=== PATIENT | female | born 1935 | race Caucasian/White ===

== ENCOUNTER 2018-10-06 05:37 | Inpatient (IN) | payer BC, MEDICARE ==
[~2018-10-06] VITALS: Ht 167.6 cm; Wt 69.9 kg
--- NOTE | 2018-10-06 05:40 | NUR ---
Pt BIBRA complaining of generalized weakness that has been progressing since last Wednesday. Pt was unable to walk today, so pt called 911. Pt is AXO4. Respirations are even and unlabored. Pt put on the monitor and pulse ox. Pt tachycardic on the monitor. Pending eval from EMILIANO HUTCHINSON.
[2018-10-06 06:43] LABS: BASOPHILS # (AUTO) 0.1 /CMM (0.0-0.2); BASOPHILS % (AUTO) 0.3 % (0.0-2.0); EOSINOPHILS % (AUTO) 0.4 % (0.0-6.0); HEMATOCRIT 40 % (33-45); LYMPHOCYTES # (AUTO) 1.1 /CMM (0.8-4.8); LYMPHOCYTES % (AUTO) 4.5 % (20.0-44.0); MEAN CORPUSCULAR HGB CONC 33 g/dl (31.0-36.0); MEAN CORPUSCULAR VOLUME 95 fL (82-100); MONOCYTES # (AUTO) 2.2 /CMM (0.1-1.30); MONOCYTES % (AUTO) 8.6 % (2.0-12.0); NEUTROPHILS % (AUTO) 86.2 % (43.0-81.0); PLATELET COUNT (AUTO) 185 /CMM (150-450); RED BLOOD CELL COUNT(AUTO) 4.23 MIL/uL (4.0-5.2); WHITE BLOOD COUNT (AUTO) 25.5 K/uL (4.3-11.0)
--- NOTE | 2018-10-06 06:50 | NUR ---
XRAY AT BEDSIDE.
[2018-10-06 07:00] LABS: CALCIUM, SERUM 8.6 mg/dL (8.5-10.1); CARBON DIOXIDE 24 mmol/L (21-32); CHLORIDE 101 mmol/L (98-107); CREATININE 2.1 mg/dL (0.6-1.3); GLUCOSE 123 mg/dL (74-106); POTASSIUM 4.4 mmol/L (3.5-5.1); SODIUM SERUM 139 mmol/L (136-145); UREA NITROGEN, BLOOD 55 mg/dL (7-18)
[2018-10-06 07:02] LABS: ALANINE AMINOTRANSFERASE 99 U/L (12-78); ALBUMIN 2.6 g/dL (3.4-5.0); ALKALINE PHOSPHATASE 111 U/L (46-116); ASPARTATE AMINOTRANSFERASE 113 U/L (15-37); BILIRUBIN,DIRECT 0.2 mg/dL (0.0-0.2); BILIRUBIN,TOTAL 0.6 mg/dL (0.2-1.0); TOTAL PROTEIN, SERUM 6.8 g/dL (6.4-8.2)
--- NOTE | 2018-10-06 07:22 | NUR ---
REPORT GIVEN TO JIA MENDOZA FOR MARYANA.
--- NOTE | 2018-10-06 07:25 | NUR ---
RECVD REPORT FROM [facility], PATIENT REMAINS STABLE IN NO DISTRESS, WILL CONTINUE TO MONITOR
[2018-10-06] MEDS ORDERED: IV NS 0.9% 1,000 ML BAG IV ONE (07:30)
[2018-10-06] MEDS ORDERED: LEVOFLOXACIN 750 MG /D5W 150ML 150 ML IV ONE (07:30)
[2018-10-06 07:31] LABS: APPEARANCE,URINE CLOUDY (CLEAR); BILIRUBIN,URINE 1+ (NEGATIVE); BLOOD, URINE 3+ Ery/uL (NEGATIVE); COLOR,URINE YELLOW (YELLOW); KETONES,URINE NEGATIVE (NEGATIVE); LEUKOCYTE ESTERASE ,URINE 3+ (NEGATIVE); NITRITE, URINE NEGATIVE (NEGATIVE); PROTEIN,URINE 2+ mg/dl (NEGATIVE); UGLUCOSE NEGATIVE (NEGATIVE); UROBILINOGEN,URINE 0.2 EU/dL (0.2)
[2018-10-06 07:46] LABS: RBC,URINE 51-80 /HPF (0-2)
[2018-10-06] MEDS ORDERED: LEVOFLOXACIN 750 MG /D5W 150ML 0 ML IV ONE (07:46)
[2018-10-06 07:47] LABS: BACTERIA,URINE Many /HPF (None Seen); SQUAMOUS EPITHELIAL CELL,UR Few /HPF (None Seen); WBC,URINE TOO NUMEROUS TO COUN /HPF (0-3)
[2018-10-06] MEDS ORDERED: METO25TA6 PO (08:52)
[2018-10-06] MEDS ORDERED: DENO60DI SQ (08:52)
[2018-10-06] MEDS ORDERED: NEO/3.5O15 EACHEYE (08:52)
[2018-10-06] MEDS ORDERED: LACT1CAP71 PO (08:52)
[2018-10-06] MEDS ORDERED: PANT40TA4 PO (08:52)
--- NOTE | 2018-10-06 09:13 | NUR ---
REPORT GIVEN TO CELFL TO CONTINUE MARYANA
[2018-10-06 09:40] VITALS: BP 120/80
[2018-10-06] MEDS ORDERED: ZOLPIDEM TARTRATE 5 MG TABLET PO PRN (10:30)
[2018-10-06] MEDS ORDERED: MAGNESIUM HYDROXIDE 30 ML UDC PO PRN (10:30)
[2018-10-06] MEDS ORDERED: ONDANSETRON HCL/PF 4 MG/2 ML VIAL IVP PRN (10:30)
[2018-10-06] MEDS ORDERED: Z GUARD REMEDY 2 OZ OINT TP PRN (10:30)
[2018-10-06] MEDS ORDERED: ACETAMINOPHEN 325 MG TABLET PO PRN (10:30)
[2018-10-06] MEDS ORDERED: MAG HYDROX/AL HYDROX/SIMETH 30 ML UDC PO PRN (10:30)
--- NOTE | 2018-10-06 10:30 | NUR ---
ms rn received a new admission from er w/ dx of generalized weakness, alert,oriented x4, not in any form of distress, respirations even and unlabored,no sob noted, lungs are diminish, abdomen soft,positive bowel sounds, denies pain at this time, noted to have a multiple abrasions all over body,will monitor patient's condition.
--- NOTE | 2018-10-06 12:00 | NUR ---
ms rn was seen by dr. cordoba, w/ orders made and carried out.
[2018-10-06 16:46] VITALS: BP 106/65
[2018-10-06] MEDS: NEO/POLY/DEXA OPHTH OINT 3.5 GM TUBE EACHEYE SCH (17:00)
[2018-10-06] MEDS: METOPROLOL TARTRATE 25 MG TABLET PO SCH (17:24)
[2018-10-06] MEDS: LACTOBACILLUS RHAMNOSUS GG 1 EACH CAP.SPRINK PO SCH (17:24)
--- NOTE | 2018-10-06 18:52 | NUR ---
ms rn on bed, no distress noted.
[2018-10-06 20:00] VITALS: BP 113/62
--- NOTE | 2018-10-06 20:00 | NUR ---
TELE/RN OPENING NOTES RECEIVED PATIENT IN BED, RESPIRATIONS EVEN AND UNLABORED BUT WEAK, REQUIRE ASSISTANCE IN TURNING AND ADS, ABLE TO CALL FOR ASSISTANCE WITH CALL LIGHT, BED LOCKED, FLUIDS WITHIN REACH, PROVIDED NEEDS, HAD BM AND USE BED MAK, WITH MULTIPLE SKIN ISSUES.WILL CONTINUE TO MONITOR. RECEIVED ENDORESEMENT FROM AM RN FOR MARYANA.
[2018-10-06] MEDS: IV 1/2NS 1000 ML 1,000 ML IV PRN (21:56)
--- NOTE | 2018-10-06 23:45 | NUR ---
TELE/RN NOTES: REPORT RECEIVED GRAM NEGATIVE RODS PRELIMINARY TO INFORM MD FOR ORDER.
[2018-10-07 00:40] VITALS: BP 105/60
[2018-10-07 04:34] VITALS: BP 116/70
--- NOTE | 2018-10-07 06:37 | NUR ---
08-2TELE/RN NOTES PATIENT ABLE TO SLEEP AND REST DURING THE NIGHT, SKIN WARM TO TOUCH. RESPIRATIONS EVEN AND UNLABIORED. WILL MONITR. BED LOCKED.
[2018-10-07 06:40] LABS: BASOPHILS % (AUTO) 0.2 % (0.0-2.0); HEMATOCRIT 36 % (33-45); HEMOGLOBIN 11.8 g/dL (11.5-14.8); LYMPHOCYTES # (AUTO) 1.4 /CMM (0.8-4.8); LYMPHOCYTES % (AUTO) 7.3 % (20.0-44.0); MEAN CORPUSCULAR HGB CONC 33 g/dl (31.0-36.0); MEAN CORPUSCULAR VOLUME 94 fL (82-100); MONOCYTES # (AUTO) 2.1 /CMM (0.1-1.30); MONOCYTES % (AUTO) 10.8 % (2.0-12.0); NEUTROPHILS # (AUTO) 15.8 /CMM (1.8-8.9); NEUTROPHILS % (AUTO) 81.7 % (43.0-81.0); PLATELET COUNT (AUTO) 157 /CMM (150-450); RED BLOOD CELL COUNT(AUTO) 3.84 MIL/uL (4.0-5.2); WHITE BLOOD COUNT (AUTO) 19.3 K/uL (4.3-11.0)
[2018-10-07 07:03] LABS: CHOLESTEROL 138 mg/dL (<200); CREATINE KINASE, TOTAL 868 U/L (26-192); HDL CHOLESTEROL 19 mg/dL (40-60); LDL 86 mg/dL (0-99); THYROID STIMULATING HORMONE 1.083 uIU/mL (0.358-3.74); TRIGLYCERIDES 128 mg/dL (30-150)
[2018-10-07 07:14] LABS: ALANINE AMINOTRANSFERASE 81 U/L (12-78); ALBUMIN 2.1 g/dL (3.4-5.0); ALKALINE PHOSPHATASE 94 U/L (46-116); ASPARTATE AMINOTRANSFERASE 59 U/L (15-37); BILIRUBIN,TOTAL 0.5 mg/dL (0.2-1.0); CALCIUM, SERUM 7.6 mg/dL (8.5-10.1); CARBON DIOXIDE 24 mmol/L (21-32); CHLORIDE 99 mmol/L (98-107); CREATININE 1.9 mg/dL (0.6-1.3); GLUCOSE 101 mg/dL (74-106); MAGNESIUM 2.3 mg/dL (1.8-2.4); POTASSIUM 3.4 mmol/L (3.5-5.1); SODIUM SERUM 131 mmol/L (136-145); TOTAL PROTEIN, SERUM 5.9 g/dL (6.4-8.2); UREA NITROGEN, BLOOD 57 mg/dL (7-18)
--- NOTE | 2018-10-07 07:40 | NUR ---
TELE/RN OPENING NOTE PATIENT IN BED IN STABLE CONDITION. A/O X 3. NO S/S OF ACUTE DISTRESS. NO COMPLAIN OF PAIN OR DISCOMFORT.ON TELE MONITOR NOTED WITH SINUS RHYTHM TO SINUS TACH OF 101. ALL NEEDS ATTENDED TO. CALL LIGHT WITHIN REACH. WILL CONTINUE TO MONITOR TO ENSURE SAFETY.
[2018-10-07 08:00] VITALS: BP 116/68
[2018-10-07] MEDS: PANTOPRAZOLE 40 MG TABLET.DR PO SCH (08:47)
[2018-10-07] MEDS: LACTOBACILLUS RHAMNOSUS GG 1 EACH CAP.SPRINK PO SCH (08:47)
[2018-10-07] MEDS: METOPROLOL TARTRATE 25 MG TABLET PO SCH ×2 (08:48→16:51)
[2018-10-07] MEDS: NEO/POLY/DEXA OPHTH OINT 3.5 GM TUBE EACHEYE SCH ×2 (08:54→16:54)
[2018-10-07] MEDS: LEVOFLOXACIN 250 MG /D5W 50 ML 250 MG in PREMIX 1 EA IV SCH (09:37)
--- NOTE | 2018-10-07 11:27 | NUR ---
WOUND CARE CONSULT: PT PRESENTS WITH MULTIPLE RED SPOTS ON LEGS, DRY ABRASION TO BACK, LEFT THIGH RED AREA WITH WEEPING, LEFT ELBOW DRY ESCHAR, BILATERAL ANKLE WOUNDS (DRY), PRESENT ON ADMISSION. RECOMMEND DPM CONSULT AND SURGICAL CONSULT. RECOMMENDATIONS MADE FOR WOUND CARE AND SKIN PROTECTION. DISCUSSED WITH NURSING STAFF. PT STATES WAS CRAWLING ON HER CARPET AT HOME FOR 2 NIGHTS. DISCUSSED WITH NURSING STAFF AND ACCOUNT SUPPORT ASSOCIATE. PT TO BE PLACED ON LOW AIRLOSS BED (ISOFLEX). CURRENT CHANCE SCORE IS 12. WILL SEE PRN. HUTCHINSON IN AGREEMENT WITH PLAN OF CARE. Addendum: 10/07/18 at 1130 by ILDEFONSO WILLIAM WNDNU Amended: Links added.
[2018-10-07] MEDS: IV 1/2NS 1000 ML 1,000 ML IV PRN (11:36)
[2018-10-07] MEDS ORDERED: POTASSIUM CHLORIDE 20 MEQ POWDER PACKET PO ONE (11:45)
[2018-10-07] MEDS ORDERED: K PHOS NEUTRAL 250 MG TABLET PO ONE (13:30)
--- NOTE | 2018-10-07 15:24 | NUR ---
Social work note: bridge worker apprentice was asked to consult on patient as she "lives alone and was found on the floor after two days". bridge worker apprentice arrived to patient bedside and introduced self, role, and purpose of visit. Patient was accompanied by many friends including Jasmyne Gene [[phone]], family friend and perspective DPOA. Patient was agreeable to conversation with friends present. Patient states she lives alone and fell and wasn't found for two days. Patient expresses that she is concerned for safety and realizes that she will need help once she is discharged. Patient states she has no family in the area, just close friends. Patient lives on the second floor of her apartment and states there is no elevator at her complex. Patient is currently not ambulating independently and may benefit from long-term placement once ready for discharge. Patient states that prior to hospitalization, that she was independent with her ADLs. bridge worker apprentice facilitated conversation about types of resources available to patient including board and care placement, caregiving, home health, assisted livings, and long-term facilities. bridge worker apprentice provided patient with a [employer] handbook detailing different types of intermediate and care and the contact information. bridge worker apprentice also facilitated conversation about DPOA and advanced healthcare directive. Patient states that she would like her friend, Jasmyne Mills, to be her decision maker. bridge worker apprentice explained the processes of designating a person as her decision maker and provided her with a blank Advanced Healthcare Directive. Patient friend, Jasmyne, is an energy attorney and states she will read it over and fill out form with patient. Patient is agreeable to this. Both Jasmyne and patient are aware that document may only become legal if witnessed by two people who are not blood relatives and who are not going to be the designated decision maker. Toward end of conversation, patient began to get tired and expressed wanting to "rest". bridge worker apprentice advised patient's friends of this who stated they will be leaving shortly. bridge worker apprentice will continue to be available to patient and patient support system during hospital admission. During social work evaluation, patient presented with normal affect and euthymic mood. Patient presented well-groomed and maintained appropriate eye contact through out conversation. Patient denied suicidal and homicidal ideations. Patient states that she was experiencing "hallucinations" when she had first fallen but denies experiencing them now. Patient thought process is linear and goal-directed. Patient thought content is within normal limits given situation. Patient insight and judgment are fair. Patient is well-supported by friends who are very involved.
[2018-10-07 16:00] VITALS: BP 112/66
[2018-10-07] MEDS: NEO/POLY-B/DEXAM OPHTH SUSP 5 ML BOTTLE EACHEYE SCH (17:02)
--- NOTE | 2018-10-07 18:44 | NUR ---
TELE/RN CLOSING NOTE PATIENT IN BED IN STABLE CONDITION. A/O X 3. NO SIGNS OF ACUTE DISTRESS. NO COMPLAIN OF PAIN OR DISCOMFORT. ON TELE MONITOR NOTED WITH SINUS RHYTHM WITH PVC AT RATE OF 82. ALL NEEDS ATTENDED TO. CALL LIGHT WITHIN REACH. WILL ENDORSE TO NEXT SHIFT FOR CONTINUITY OF CARE.
--- NOTE | 2018-10-07 19:15 | NUR ---
MS/ pump servicer supervisor NOTE RECEIVED PT IN BED AWAKE AND A/O X4 IN STABLE CONDITION. NO S/S OF ACUTE DISTRESS OR SOB NOTED. NO COMPLAIN OF PAIN OR DISCOMFORT AT THIS TIME. PT ON TELE MONITOR NOTED WITH SINUS RHYTHM. LFA #20G RUNNING 1/2 NS @100ML/HR. CALL LIGHT WITHIN REACH. WILL CONTINUE TO MONITOR.
[2018-10-07 20:00] VITALS: BP 113/63
[2018-10-07] MEDS: HYDROCODONE/APAP 5/325MG 1 EACH TABLET PO PRN (22:06)
[2018-10-08] VITALS: BP 115/67
[2018-10-08] MEDS: IV 1/2NS 1000 ML 1,000 ML IV PRN ×2 (02:11→13:55)
[2018-10-08 04:00] VITALS: BP 116/70
[2018-10-08] MEDS: HYDROCODONE/APAP 5/325MG 1 EACH TABLET PO PRN ×2 (05:43→20:20)
[2018-10-08 06:25] LABS: BASOPHILS % (AUTO) 0.1 % (0.0-2.0); EOSINOPHILS % (AUTO) 0.5 % (0.0-6.0); HEMATOCRIT 35 % (33-45); HEMOGLOBIN 11.8 g/dL (11.5-14.8); LYMPHOCYTES # (AUTO) 1.4 /CMM (0.8-4.8); LYMPHOCYTES % (AUTO) 9.8 % (20.0-44.0); MEAN CORPUSCULAR HGB CONC 33 g/dl (31.0-36.0); MEAN CORPUSCULAR VOLUME 94 fL (82-100); MONOCYTES # (AUTO) 1.9 /CMM (0.1-1.30); MONOCYTES % (AUTO) 13.4 % (2.0-12.0); NEUTROPHILS # (AUTO) 10.7 /CMM (1.8-8.9); NEUTROPHILS % (AUTO) 76.2 % (43.0-81.0); PLATELET COUNT (AUTO) 159 /CMM (150-450); RED BLOOD CELL COUNT(AUTO) 3.77 MIL/uL (4.0-5.2)
[2018-10-08 06:53] LABS: ALANINE AMINOTRANSFERASE 62 U/L (12-78); ALBUMIN 1.8 g/dL (3.4-5.0); ALKALINE PHOSPHATASE 88 U/L (46-116); ASPARTATE AMINOTRANSFERASE 46 U/L (15-37); BILIRUBIN,TOTAL 0.4 mg/dL (0.2-1.0); CALCIUM, SERUM 7.6 mg/dL (8.5-10.1); CARBON DIOXIDE 28 mmol/L (21-32); CHLORIDE 106 mmol/L (98-107); CREATININE 1.7 mg/dL (0.6-1.3); GLUCOSE 100 mg/dL (74-106); MAGNESIUM 2.3 mg/dL (1.8-2.4); PHOSPHORUS 5.1 mg/dL (2.5-4.9); POTASSIUM 3.8 mmol/L (3.5-5.1); SODIUM SERUM 139 mmol/L (136-145); TOTAL PROTEIN, SERUM 5.7 g/dL (6.4-8.2); UREA NITROGEN, BLOOD 46 mg/dL (7-18)
--- NOTE | 2018-10-08 06:53 | NUR ---
MS/ school adjustment counselor NOTE PT IN BED ASLEEP BUT EASILY AWOKEN VERBALLY OR BY TOUCH. PT A/O X4 IN STABLE CONDITION THROUGHOUT SHIFT. ENCOURAGED FLUIDS TOLERATED. NO S/S OF ACUTE DISTRESS OR SOB NOTED. PT ON TELE MONITOR WITH SINUS RHYTHM NOTED. LFA #20G RUNNING 1/2 NS @100ML/HR. CALL LIGHT WITHIN REACH. WILL ENDORSE TO ONCOMING NURSE FOR CONTINUATION OF CARE.
--- NOTE | 2018-10-08 07:34 | NUR ---
MS/RN OPENING NOTES PATIENT IN BED IN STABLE CONDITION. A/O X 3. NO SIGNS OF ACUTE DISTRESS. NO COMPLAIN OF PAIN OR DISCOMFORT. ALL NEEDS ATTENDED TO. CALL LIGHT WITHIN REACH. WILL CONTINUE TO MONITOR TO ENSURE SAFETY.
[2018-10-08 08:00] VITALS: BP 122/71
[2018-10-08] MEDS: THERAHONEY GEL 1.5 OZ TUBE TP SCH (08:11)
[2018-10-08] MEDS: DAKINS QUARTER STRENGTH (0.125%) 480 ML BOTTLE TOP SCH (08:11)
[2018-10-08] MEDS: LACTOBACILLUS RHAMNOSUS GG 1 EACH CAP.SPRINK PO SCH (08:11)
[2018-10-08] MEDS: NEO/POLY-B/DEXAM OPHTH SUSP 5 ML BOTTLE EACHEYE SCH ×2 (08:12→16:37)
[2018-10-08] MEDS: METOPROLOL TARTRATE 25 MG TABLET PO SCH ×2 (08:12→16:37)
[2018-10-08] MEDS: PANTOPRAZOLE 40 MG TABLET.DR PO SCH (08:12)
[2018-10-08] MEDS ORDERED: COLLAGENASE 15 GM TUBE TP SCH (09:00)
[2018-10-08] MEDS: LEVOFLOXACIN 250 MG /D5W 50 ML 250 MG in PREMIX 1 EA IV SCH (09:25)
[2018-10-08 16:00] VITALS: BP 134/71
--- NOTE | 2018-10-08 18:16 | NUR ---
MS/RN CLOSING NOTES PATIENT IN BED IN STABLE CONDITION. A/O X 3. NO SIGNS OF ACUTE DISTRESS. NO COMPLAIN OF PAIN OR DISCOMFORT. ALL NEEDS ATTENDED TO. CALL LIGHT WITHIN REACH. WILL ENDORSE TO NEXT SHIFT FOR CONTINUITY OF CARE.
[2018-10-08 20:00] VITALS: BP 137/87
[2018-10-08 20:07] LABS: PTH, INTACT 154 pg/mL (15-65)
--- NOTE | 2018-10-08 20:20 | NUR ---
MS RN NOTES NORCO 5/325 GIVEN TO PT FOR PAIN.
--- NOTE | 2018-10-08 20:41 | NUR ---
MS RN NOTE RECEIVED PT IN BED AWAKE AND A/O X4. NO COMPLAINTS OF PAIN AT THIS TIME. NO S/S OF ACUTE DISTRESS OR SOB NOTED. LFA #20G RUNNING 1/2 NS @100ML/HR. CALL LIGHT WITHIN REACH. WILL CONTINUE TO MONITOR FOR CARE.
[2018-10-09] MEDS: IV 1/2NS 1000 ML 1,000 ML IV PRN ×2 (01:22→11:55)
--- NOTE | 2018-10-09 06:25 | NUR ---
MS RN NOTE PT IN BED ASLEEP BUT EASILY AWOKEN VERBALLY OR BY TOUCH. PT AND A/O X4. NO COMPLAINTS OF PAIN AT THIS TIME. NO S/S OF ACUTE DISTRESS OR SOB NOTED. LFA #20G RUNNING 1/2 NS @100ML/HR. PT STABLE THROUGHOUT SHIFT. CALL LIGHT WITHIN REACH. WILL ENDORSE TO ONCOMING NURSING FOR CONTINUATION OF CARE.
[2018-10-09 06:38] LABS: BASOPHILS % (AUTO) 0.1 % (0.0-2.0); EOSINOPHILS % (AUTO) 1.1 % (0.0-6.0); HEMATOCRIT 39 % (33-45); HEMOGLOBIN 12.7 g/dL (11.5-14.8); LYMPHOCYTES # (AUTO) 1.4 /CMM (0.8-4.8); LYMPHOCYTES % (AUTO) 11.1 % (20.0-44.0); MEAN CORPUSCULAR HGB CONC 32 g/dl (31.0-36.0); MEAN CORPUSCULAR VOLUME 94 fL (82-100); MONOCYTES # (AUTO) 1.7 /CMM (0.1-1.30); MONOCYTES % (AUTO) 13.9 % (2.0-12.0); NEUTROPHILS # (AUTO) 9.3 /CMM (1.8-8.9); NEUTROPHILS % (AUTO) 73.8 % (43.0-81.0); PLATELET COUNT (AUTO) 189 /CMM (150-450); WHITE BLOOD COUNT (AUTO) 12.6 K/uL (4.3-11.0)
[2018-10-09 06:49] LABS: ALANINE AMINOTRANSFERASE 68 U/L (12-78); ALKALINE PHOSPHATASE 89 U/L (46-116); ASPARTATE AMINOTRANSFERASE 40 U/L (15-37); BILIRUBIN,TOTAL 0.4 mg/dL (0.2-1.0); CALCIUM, SERUM 7.6 mg/dL (8.5-10.1); CARBON DIOXIDE 27 mmol/L (21-32); CHLORIDE 107 mmol/L (98-107); CREATININE 1.4 mg/dL (0.6-1.3); GLUCOSE 100 mg/dL (74-106); MAGNESIUM 2.2 mg/dL (1.8-2.4); PHOSPHORUS 2.1 mg/dL (2.5-4.9); POTASSIUM 3.9 mmol/L (3.5-5.1); SODIUM SERUM 144 mmol/L (136-145); UREA NITROGEN, BLOOD 29 mg/dL (7-18)
[2018-10-09 08:00] VITALS: BP 138/69
[2018-10-09] MEDS: LACTOBACILLUS RHAMNOSUS GG 1 EACH CAP.SPRINK PO SCH (08:12)
[2018-10-09] MEDS: PANTOPRAZOLE 40 MG TABLET.DR PO SCH (08:12)
[2018-10-09] MEDS: METOPROLOL TARTRATE 25 MG TABLET PO SCH ×2 (08:13→18:16)
[2018-10-09] MEDS: HYDROCODONE/APAP 5/325MG 1 EACH TABLET PO PRN (08:14)
--- NOTE | 2018-10-09 08:14 | NUR ---
rn notes RECEIVED PATIENT IN THE BED A/O X3, PATIENT HAD NO ACUTE RESPIRATORY DISTRESS, UNLABORED. V/S STABLE. PATIENT WAS COMPLAINING ON PAIN GENERALIZED / ADMINISTERED NARCO 5/325 MG PO PRN PER PATENT REQUEST, AND SCHEDULED MEDICATION. ENCOURAGED PATIENT TO EAT, AND TAKE FLUIDS TOLERATED. ASSIST PATIENT TURN AND REPOSTION Q 2 HR, NEEDS ATTENDED AND ANTICIPATED, CALL LIGHT WITHIN TO REACH, SAFETY PRECAUTION MAINTAINED ALL THE TIME.
[2018-10-09] MEDS: NEO/POLY-B/DEXAM OPHTH SUSP 5 ML BOTTLE EACHEYE SCH ×2 (08:22→18:17)
[2018-10-09] MEDS: DAKINS QUARTER STRENGTH (0.125%) 480 ML BOTTLE TOP SCH (08:22)
[2018-10-09] MEDS: THERAHONEY GEL 1.5 OZ TUBE TP SCH (08:27)
--- NOTE | 2018-10-09 10:00 | NUR ---
RN NOTES PATIENT IN THE BED RESTING, MEDICATION WERE ADMINISTERED FOR PAIN EFFECTIVE, ASSIST TURN AND REPOSTION Q 2 HR. CALL LIGHT WITHIN TO REACH, SAFETY PRECAUTION MAINTAINED ALL THE TIME.
[2018-10-09] MEDS: LEVOFLOXACIN 250 MG /D5W 50 ML 250 MG in PREMIX 1 EA IV SCH (11:50)
[2018-10-09] MEDS: DULOXETINE HCL 30 MG CAPSULE.DR PO SCH (13:09)
--- NOTE | 2018-10-09 14:06 | NUR ---
RN NOTES ADMINISTERED TYLENOL 650 MG PO PRN FOR BILATERAL LOWER EXTREMITIES, CONTINUED MONITORING.
[2018-10-09 16:00] VITALS: BP 120/57
[2018-10-09] MEDS ORDERED: K PHOS NEUTRAL 250 MG TABLET PO ONE (16:00)
--- NOTE | 2018-10-09 18:26 | NUR ---
RN NOTES ADMINISTERED ZOFRAN 4 MG/ML IV PUSH FOR NAUSEA, PER PATIENT REQUEST, CONTINUED MONITORING.
--- NOTE | 2018-10-09 18:30 | NUR ---
RN NOTES PATIENT STABLE MEDICATION WERE ADMINISTERED FOR NAUSEA EFFECTIVE, NO ACUTE DISTRESS, V/S STABLE, INFUSING NS AT 100 ML/HE IN RIGHT FA INTACT, ASSIST TURN AND REPOSTION Q 2 HR. CALL LIGHT NEAR TO REACH, SON NEXT TO THE BED. SAFETY PRECAUTION MAINTAINED ALL THE TIME. ENDORSED ONCOMING NURSE FOR PLAN OF CARE.
--- NOTE | 2018-10-09 19:50 | NUR ---
RN OPENING NOTES RECEIVED REPORT FROM DAYSHIFT KELLY DASILVA. FOUND Pt AWAKE, RESTING IN BED. RESPIRATIONS EVEN AND UNLABORED. NO S/S OF ACUTE DISTRESS OR SOB NOTED. SAFETY MEASURES IN PLACE. BED LOW, LOCKED, HOB ELEVATED, SIDE RAILS UP, CALL LIGHT AND BEDSIDE TABLE WITHIN REACH. WILL CONTINUE TO MONITOR Pt's CONDITION AND SAFETY THROUGHOUT THE NIGHT.
[2018-10-09 20:00] VITALS: BP 114/62
--- NOTE | 2018-10-09 20:58 | NUR ---
RN NOTES ENDORSED TO NURSE NOGUEIRA FOR Pt's MARYANA.
--- NOTE | 2018-10-09 21:00 | NUR ---
MS KEELY NOTES GOT REPORT FROM ANOTHER TO CONTINUATION OF CARE. SEEN PT IN BED LYING WHILE WATCHING TV AT THIS TIME. BREATHING EVEN AND NON-LABORED NOT IN ANY ACUTE DISTRESS NOTED. SHE STILL ON IVF 1/2 NS AT 100ML/HR INFUSING AT THIS TIME. DENIES ANY PAIN OR ANY DISCOMFORT. WILL CONTINUE MONITORING. PLACE CALL LIGHT AT REACH.
--- NOTE | 2018-10-10 | NUR ---
MS KEELY NOTES SLEEPING AT THIS TIME WITHOUT ANY ACUTE DISTRESS NOTED. WILL CONTINUE MONITORING.
[2018-10-10] MEDS: IV 1/2NS 1000 ML 1,000 ML IV PRN (03:12)
--- NOTE | 2018-10-10 03:30 | NUR ---
MS KEELY NOTES' PT WOKE UP AND ASKING SOMETHING TO DRINK THEN AFTER THAT I DID WOUND CARE TREATMENT WELL PHOTO TAKEN. KEPT HER WARM AND COMFORTABLE AT ALL TIMES. PLACE CALL LIGHT AT REACH.WILL CONTINUE MONITORING.
--- NOTE | 2018-10-10 06:49 | NUR ---
MS CRIMINAL JUSTICE FACULTY CLOSING NOTES PT BACK TO REST AFTER MORNING CARE DONE , RESPIRATION EVEN AND NON-LABORED NOT IN ANY ACUTE DISTRESS NOTED. STABLE SYLVIA THE NIGHT AND SLEPT WELL. IVF 1/2 NS REMAIN INFUSING ON HER RIGHT FOREARM NO SIGNS OF INFILTRATION NOTED. KEPT HER WARM, AND COMFORTABLE AT ALL TIMES. ALL DUE MEDS GIVEN AND ALL NEEDS MET. ON SEMI FOWLERS POSITION WITH SIDE RAILS X3 UP AND BED ALARM SET FOR SAFETY. PLACE CALL LIGHT AT REACH. ENDORSE TO AM NURSE FOR CONTINUITY OF CARE.
--- NOTE | 2018-10-10 07:30 | NUR ---
MS RN Opening Notes Patient asleep, resting in bed. Alert and oriented x4, able to verbalize needs. No complaints of pain at this time. Respirations even and unlabored on room air, no acute distress noted. Peripheral IV to the left forearm 20 guage, intact, patent and infusing fluids as ordered. Updated patient on current plan of care and safety measures. Patient verbalized understanding. Safety and fall precautions in place: bed in lowest and locked position, side rails up x2, bed alarm on, call light and personal possessions within reach. Patient verbalized understanding. Will continue to monitor and intervene as needed.
[2018-10-10 07:44] LABS: BASOPHILS % (AUTO) 0.3 % (0.0-2.0); HEMATOCRIT 36 % (33-45); HEMOGLOBIN 11.9 g/dL (11.5-14.8); LYMPHOCYTES # (AUTO) 1.6 /CMM (0.8-4.8); LYMPHOCYTES % (AUTO) 15.4 % (20.0-44.0); MEAN CORPUSCULAR HGB CONC 33 g/dl (31.0-36.0); MEAN CORPUSCULAR VOLUME 94 fL (82-100); MONOCYTES # (AUTO) 1.7 /CMM (0.1-1.30); NEUTROPHILS % (AUTO) 67.3 % (43.0-81.0); PLATELET COUNT (AUTO) 184 /CMM (150-450); RED BLOOD CELL COUNT(AUTO) 3.87 MIL/uL (4.0-5.2); WHITE BLOOD COUNT (AUTO) 10.4 K/uL (4.3-11.0)
[2018-10-10 08:00] VITALS: BP 140/69
[2018-10-10] MEDS: THERAHONEY GEL 1.5 OZ TUBE TP SCH (09:11)
[2018-10-10] MEDS: PANTOPRAZOLE 40 MG TABLET.DR PO SCH (09:12)
[2018-10-10] MEDS: LACTOBACILLUS RHAMNOSUS GG 1 EACH CAP.SPRINK PO SCH (09:12)
[2018-10-10] MEDS: DAKINS QUARTER STRENGTH (0.125%) 480 ML BOTTLE TOP SCH (09:12)
[2018-10-10 09:13] VITALS: BP 140/69
[2018-10-10] MEDS: METOPROLOL TARTRATE 25 MG TABLET PO SCH (09:13)
[2018-10-10] MEDS: LEVOFLOXACIN 250 MG /D5W 50 ML 250 MG in PREMIX 1 EA IV SCH (09:14)
[2018-10-10] MEDS: NEO/POLY-B/DEXAM OPHTH SUSP 5 ML BOTTLE EACHEYE SCH (09:16)
[2018-10-10] MEDS ORDERED: LEVO500T90 PO (12:08)
[2018-10-10] MEDS ORDERED: DULO30CA2 PO (12:23)
[2018-10-10] MEDS ORDERED: K PHOS NEUTRAL 250 MG TABLET PO ONE (13:00)
[2018-10-10] MEDS: DULOXETINE HCL 30 MG CAPSULE.DR PO SCH (13:00)
[2018-10-10 14:48] LABS: ALANINE AMINOTRANSFERASE 54 U/L (12-78); ALBUMIN 1.9 g/dL (3.4-5.0); ALKALINE PHOSPHATASE 74 U/L (46-116); ASPARTATE AMINOTRANSFERASE 37 U/L (15-37); BILIRUBIN,TOTAL 0.3 mg/dL (0.2-1.0); CALCIUM, SERUM 7.3 mg/dL (8.5-10.1); CARBON DIOXIDE 23 mmol/L (21-32); CHLORIDE 106 mmol/L (98-107); CREATININE 1.2 mg/dL (0.6-1.3); GLUCOSE 108 mg/dL (74-106); POTASSIUM 4.4 mmol/L (3.5-5.1); SODIUM SERUM 141 mmol/L (136-145); TOTAL PROTEIN, SERUM 5.7 g/dL (6.4-8.2); UREA NITROGEN, BLOOD 22 mg/dL (7-18)
--- NOTE | 2018-10-10 18:10 | NUR ---
MS development associate Notes Patient awake, resting in bed. DNR/DNI. Alert and oriented x4, able to verbalize needs. No complaints of pain at this time. Vital signs stable, medically stable. Respirations even and unlabored on room air, no acute distress noted. Peripheral IV to left forearm 20 guage removed with catheter tip intact. No redness, swelling or bleeding of the site noted. Skin assessment completed and photos placed in chart. Personal belonings accounted for upon discharge, acknowledged and verified via signature on belongings form. Discharge instructions and Exitcare provided to both patient and family member present (Clarence); acknowledged and verified via signature on discharge instructions. Copies placed in chart. Patient transported to [facility] with EMS transport; report given to RN electrical tryout person. Transfer summary completed and discharged with patient. DPOA notified and aware of discharge.
[2018-10-11 06:10] LABS: *SPE A/G RATIO 0.7 (0.7-1.7); *SPE ALBUMIN 2.2 g/dL (2.9-4.4); *SPE ALPHA-1-GLOBULIN 0.5 g/dL (0.0-0.4); *SPE ALPHA-2-GLOBULIN 1.1 g/dL (0.4-1.0); *SPE GLOBULIN, TOTAL 3.1 g/dL (2.2-3.9); *SPE M-SPIKE Not Observed g/dL (Not Observed); *SPEGAMMA GLOBULIN 0.5 g/dL (0.4-1.8)
[2018-10-11] MEDS ORDERED: LEVOFLOXACIN (250MG) 250 MG TABLET PO SCH (09:00)
== END 2018-10-10 18:11 | DRG 871 ==
LOC: EDBD 05:39 → ER 05:39 → TELE 09:21 → MED 10-08 08:54
PROVIDERS: ADMIT Student in an Organized Health Care Education/Training Program; ATTEND Student in an Organized Health Care Education/Training Program
DX: A41.51 Sepsis due to Escherichia coli [E. coli] (principal); N17.0 Acute kidney failure with tubular necrosis; K72.00 Acute and subacute hepatic failure without coma; E44.0 Moderate protein-calorie malnutrition; N39.0 Urinary tract infection, site not specified; E87.1 Hypo-osmolality and hyponatremia; E87.2 Acidosis; R65.20 Severe sepsis without septic shock; N18.9 Chronic kidney disease, unspecified; M19.90 Unspecified osteoarthritis, unspecified site; M81.0 Age-related osteoporosis without current pathological fracture; R32 Unspecified urinary incontinence; W18.30XA Fall on same level, unspecified, initial encounter; Y92.89 Other specified places as the place of occurrence of the external cause; I12.9 Hypertensive chronic kidney disease with stage 1 through stage 4 chronic kidney disease, or unspecified chronic kidney disease; R23.3 Spontaneous ecchymoses; K21.9 Gastro-esophageal reflux disease without esophagitis; Z66 Do not resuscitate; Z87.891 Personal history of nicotine dependence; Z88.0 Allergy status to penicillin; F32.9 Major depressive disorder, single episode, unspecified; Z68.24 Body mass index [BMI] 24.0-24.9, adult
CPT/HCPCS: 36415; 71045-TC; 73502; 80048-TC; 80053-TC; 80061-TC; 80076-TC; 81000-TC; 82550-TC; 82728-TC; 83540-TC; 83605-TC; 83735-TC; 83970; 84100-TC; 84155; 84165; 84439-TC; 84443-TC; 84484-TC; 85025-TC; 87040-TC; 87081-TC; 87086-TC; 87186-TC; 87400; 93307-TC; 97110-TC; 97116-TC; 97530-TC; A4216; A6403; G0378; J1956; J2405; J3490; J7030